=== PATIENT | male | born 1930 | race Caucasian/White ===

== ENCOUNTER → 2016-09-08 | Outpatient (CLI) | payer MEDICARE, OTHER ==
--- NOTE | 2016-09-08 23:25 | MR ---
EXAMINATION TYPE: MR chest wo/w con DATE OF EXAM: 09/08/2016 COMPARISON: NONE HISTORY: abn ct, rt lung thickening CONTRAST: Standard multiplanar, multisequence MRI departmental protocol utilizing 18 mL intravenous MultiHance gadolinium contrast. FINDINGS: There is some thickening along the right major fissure. This has intermediate signal and th ere is contrast enhancement of this area seen on the postgadolinium images. I see no pleural thickeni ng along the chest wall. The heart appears enlarged. There is no pericardial effusion. There is evide nce for small pleural effusions at the lung bases. I see no evidence of mediastinal adenopathy. There are pretracheal lymph nodes that measure up to 1 c m. Ascending aorta measures almost 4 cm. I see no evidence of aortic dissection. The bony thorax appe ars intact. I see no focal bone destruction.. 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 Cardiomegaly. Tiny bilateral pleural effusions. There is some thickening along the right major fissure that is nonspecific. This shows some enhanceme nt with the contrast and is consistent with inflammatory process. The possibility of tumor cannot be excluded. Bilateral renal cortical cysts are noted.
== END | disposition home or self-care (01) ==
LOC: RADMRIMAIN 09:57
PROVIDERS: ATTEND Family Medicine
DX: J90 Pleural effusion, not elsewhere classified (principal); R91.8 Other nonspecific abnormal finding of lung field
CPT/HCPCS: 71552; A9577

== ENCOUNTER → 2016-10-25 | Outpatient (CLI) | payer MEDICARE, OTHER | END | disposition home or self-care (01) | LOC: RADNMMAIN 07:17 | PROVIDERS: ATTEND Family Medicine | DX: Z53.9 Procedure and treatment not carried out, unspecified reason (principal) ==